=== PATIENT | female | born 1975 | race Caucasian/White ===

== ENCOUNTER 2016-11-15 19:42 | Emergency (ER) | payer OTHER ==
[2016-11-15 19:55] VITALS: BP 129/90; PULSE 99; TEMP 98; BMI 22.6
[2016-11-15] MEDS ORDERED: KETOROLAC TROMETHAMINE 30 MG/1 ML VIAL IVPUSH ONE (20:02)
[2016-11-15] MEDS ORDERED: SODIUM CHLORIDE 1,000 ML IV STA (20:02)
--- NOTE | 2016-11-15 20:06 | PDOC ---
[id number]: No Limitations - History of Present Illness Travel History: No Initial Comments: 11/15/16 20:18 The patient is a 41 year old female with a past medical history hysterectomy, sphincter body disorder, IBS, chronic gastritis, pancreatitis who presents to the emergency department for further evaluation of lower abdominal and back pain , and hematuria. The patient reports associated bilateral hand and foot edema, and dizziness. The patient states that she has been trying to treat her infection with Cipro with no alleviation of symptoms. She states that today she was driving and almost passed out. She denies any drug allergies. PCP: Dr. Marcel Suarez <Christian Gibson - Last Filed: 11/15/16 20:45> <Volodymyr Whitley - Last Filed: 11/16/16 06:58> - General Chief Complaint: Hematuria Stated Complaint: PAIN, HEMATURIA Time Seen by Provider: 11/15/16 19:58 Past History <Christian Gibson - Last Filed: 11/15/16 20:45> - Past Medical History Anemia: No Asthma: No Cancer: (NON CA TUMORS OF ESPHAGUS) Cardiac Disorders: No CVA: No COPD: No CHF: No Dementia: No Diabetes: No GI Disorders: Yes (SPHINCTER OF ODDI DISORDER, IBS, CHRONIC PANCREATITIS) Disorders: Yes (OVARIAN CYSTS, HEMATURIA) HTN: No Hypercholesterolemia: No Liver Disease: No Psychiatric Problems: Yes Seizures: No Thyroid Disease: No Other medical history: AUTOIMMUNE DISEASE, ORTHOSTATIC HYPOTENSION - Surgical History Abdominal Surgery: Yes (multiple recurrent polyps, status post recurrent colonoscopy and polypectom) Appendectomy: No Cardiac Surgery: No Cholecystectomy: Yes Lung Surgery: No Neurologic Surgery: No Orthopedic Surgery: Yes (RIGHT KNEE ARTHROSCOPY X 2) - Immunization History Immunization Up to Date: Yes - Psycho/Social/Smoking Cessation Hx Anxiety: Yes Suicidal Ideation: No Smoking Status: Yes Smoking History: Current every day smoker Years of Tobacco Use: 8 Have you smoked in the past 12 months: Yes Number of Cigarettes Smoked Daily: 20 If you are a former smoker, when did you quit?: 93 DAYS AGO Information on smoking cessation initiated: Yes 'Breaking Loose' booklet given: 11/15/16 Hx Alcohol Use: Yes Drug/Substance Use Hx: No Substance Use Type: Alcohol, Prescribed Hx Substance Use Treatment: No <Volodymyr Whitley - Last Filed: 11/16/16 06:58> - Past Medical History Allergies/Adverse Reactions: Allergies Allergy/AdvReac Type Severity Reaction Status Date / Time Latex, Natural Rubber Allergy Rash Verified 10/07/15 07:22 povidone-iodine Allergy Rash Verified 10/07/15 07:22 [From Betadine] soap [From Betadine] Allergy Rash Verified 10/07/15 07:22 NSAIDS (Non-Steroidal AdvReac "INTERACTS Verified 10/07/15 07:22 Anti-Inflamma WITH CYMBALTA" No Known Allergies Allergy Uncoded 12/03/11 20:57 Home Medications: Ambulatory Orders Morphine Sulfate [Morphine Sulfate Er] 15 mg PO BID PRN 05/07/16 Phenazopyridine HCl [Pyridium] 100 mg PO TID #10 tablet 11/15/16 Sulfamethoxazole/Trimethoprim [Bactrim Ds -] 1 tab PO BID #06 tablet 11/15/16 Review of Systems - Review of Systems Able to Perform ROS?: Yes ABD/GI: Yes: Symptoms Reported, See HPI, Other (Abdominal pain) : Yes: Symptoms Reported, See HPI, Hematuria Musculoskeletal: Yes: Symptoms Reported, See HPI, Back Pain, Other (b/l hand and foot edema) Neurological: Yes: Symptoms reported, See HPI, Dizziness <Christian Gibson - Last Filed: 11/15/16 20:45> *Physical Exam - Vital Signs Last Vital Signs Temp Pulse Resp BP Pulse Ox 98 F 99 H 18 129/90 100 11/15/16 19:53 11/15/16 19:53 11/15/16 19:53 11/15/16 19:53 11/15/16 19:53 <Christian Gibson - Last Filed: 11/15/16 20:45> - Vital Signs Last Vital Signs Temp Pulse Resp BP Pulse Ox 98 F 99 H 18 129/90 100 11/15/16 19:53 11/15/16 19:53 11/15/16 19:53 11/15/16 19:53 11/15/16 19:53 - Physical Exam General Appearance: Yes: Nourished, Appropriately Dressed. No: Apparent Distress HEENT: positive: Normal ENT Inspection Respiratory/Chest: positive: Lungs Clear, Normal Breath Sounds. negative: Chest Tender, Respiratory Distress Cardiovascular: positive: Regular Rhythm, Regular Rate Gastrointestinal/Abdominal: positive: Normal Bowel Sounds, Tender (DIFFUSELLY BUT MOSTLY LOWER ABD W/ VOL GUARDING) Musculoskeletal: positive: Normal Inspection Extremity: positive: Normal Capillary Refill Neurologic: positive: Fully Oriented, Alert, Normal Mood/Affect, Normal Response , Motor Strength 5/5 <Volodmyyr Whitley - Last Filed: 11/16/16 06:58> ED Treatment Course - LABORATORY CBC & Chemistry Diagram: 11/15/16 20:18 11/15/16 20:18 <Christian Gibson - Last Filed: 11/15/16 20:45> - LABORATORY CBC & Chemistry Diagram: 11/15/16 20:18 11/15/16 20:18 <Volodymyr Whitley - Last Filed: 11/16/16 06:58> Progress Note - Progress Note Progress Note: DYSURIA AND BACK PAIN LIKELY UTI CONVOLUTED HISTORY WILL CHECK CBC AND BMP AND REASSESS AFTER IVF AND PAIN CONTROL <Volodymyr Whitley - Last Filed: 11/16/16 06:58> *DC/Admit/Observation/Transfer - Attestations Scribe Attestion: 11/15/16 20:21 Documentation prepared by Christian Gibson, acting as medical tech for Volodymyr Whitley MD. <Christian Gibson - Last Filed: 11/15/16 20:45> <Volodymyr Whitley - Last Filed: 11/16/16 06:58> Diagnosis at time of Disposition: Recurrent urinary tract infection - Discharge Dispostion Disposition: HOME Condition at time of disposition: Stable - Prescriptions Prescriptions: Sulfamethoxazole/Trimethoprim [Bactrim Ds -] 1 tab PO BID #06 tablet Phenazopyridine HCl [Pyridium] 100 mg PO TID #10 tablet - Referrals Referrals: Marcel Rutledge MD [Primary Care Provider] -
[2016-11-15] MEDS ORDERED: KETOROLAC TROMETHAMINE 30 MG/1 ML VIAL ONE (20:07)
[2016-11-15 20:20] LABS: PH,URINE 5.5 (4.5-8); URINE BILIRUBIN Negative (NEGATIVE); URINE GLUCOSE (UA) Negative (NEGATIVE); URINE KETONE Negative (NEGATIVE); URINE NITRITE Negative (NEGATIVE); URINE UROBILINOGEN 0.2 E.U/dl (0.2-1.0)
[2016-11-15 20:22] LABS: URINE APPEARANCE CLOUDY; URINE BLOOD 2+ (NEGATIVE); URINE COLOR YELLOW; URINE LEUK ESTERASE 2+ (NEGATIVE); URINE PROTEIN 1+ (NEGATIVE)
[2016-11-15 20:29] LABS: BASOPHIL 0.9 % (0-2.0); EOSINOPHIL 2.1 % (0-4.5); MCH 31.4 pg (25.7-33.7); MCHC 34.5 g/dl (32.0-36.0); MEAN CELL VOLUME 91.1 fl (80-96); MEAN PLT VOLUME 8.4 fl (7.5-11.1); NEUTROPHILS 60.5 % (42.8-82.8); PLATELET COUNT 238 K/MM3 (134-434); WHITE BLOOD COUNT 10.7 K/mm3 (4.0-10.0)
[2016-11-15 20:31] LABS: URINE BACTERIA MODERATE /hpf (NEGATIVE); URINE RBC 0-2 /hpf (0-3); URINE WBC MANY (3-5)
[2016-11-15 20:42] LABS: CREATININE 0.7 mg/dl (0.6-1.3)
[2016-11-15] MEDS ORDERED: SULFAMETHOXAZOLE/TRIMETHOPRIM 800MG/160MG D.S. TABLET PO ONE (20:44)
[2016-11-15] MEDS ORDERED: PHENAZOPYRIDINE HCL 100 MG TABLET (FP) ONE (20:48)
[2016-11-15] MEDS ORDERED: SULFAMETHOXAZOLE/TRIMETHOPRIM 800MG/160MG D.S. TABLET ONE (20:48)
[2016-11-16] MEDS ORDERED: PHENAZOPYRIDINE HCL 100 MG TABLET (FP) PO SCH (09:00)
== END 2016-11-15 21:15 | disposition home or self-care (01) ==
LOC: SUPCPDRO 19:42 → FER 19:42
PROC: 3E0333Z Introduction of Anti-inflammatory into Peripheral Vein, Percutaneous Approach (ICD-10-PCS; principal; 2016-11-15)
PROC: 3E03329 Introduction of Other Anti-infective into Peripheral Vein, Percutaneous Approach (ICD-10-PCS; 2016-11-15)
DX: N39.0 Urinary tract infection, site not specified (principal); F17.210 Nicotine dependence, cigarettes, uncomplicated; K83.4 Spasm of sphincter of Oddi; F99 Mental disorder, not otherwise specified; I95.1 Orthostatic hypotension; K58.2 Mixed irritable bowel syndrome
CPT/HCPCS: 36415; 80048; 81003; 81015; 85025; 99282-25

== ENCOUNTER 2018-07-02 05:05 | Emergency (ER) | payer OTHER ==
--- NOTE | 2018-07-02 05:09 | PDOC ---
History of Present Illness - General Chief Complaint: Injury Stated Complaint: INJURY TO RIGHT RING FINGER Time Seen by Provider: 07/02/18 05:08 History Source: Patient Exam Limitations: No Limitations - History of Present Illness Initial Comments: 07/02/18 05:11 This is a 42-year-old female who comes in complaining of right ring finger pain post jamming her finger this morning. Patient otherwise denies any complaints. PAST MEDICAL HISTORY: no significant history PAST SURGICAL HISTORY: no significant history FAMILY HISTORY: no pertinant history SOCIAL HISTORY: Pt lives with family and is employed. MEDICATIONS: reviewed ALLERGIES: As per nursing notes ROS General: No fevers or chills, no weakness, no weight loss HEENT: No change in vision. No sore throat,. No ear pain CardioVascular: No chest pain or shortness of breath Respiratory:No cough, or wheezing. Gastrointestinal: no nausea, vomiting, diarrhea or constipation, No rectal bleeding Genitourinary: No dysuria, hematuria, or frequency Musculoskeletal: . Right ring finger pain Neurologic: No headache, vertigo, dizziness or loss of consciousness Psychiatric: nor depression Skin: No rashes or easy bruising Endocrine: no increased thirst or abnormal weight change Allergic: no skin or latex allergy All other systems reviewed and normal GENERAL: The patient is awake, alert, and fully oriented, in no acute distress. HEAD: Normal with no signs of trauma. EARS: Bilateral ears are normal with normal external canal. and tympanic membranes. EYES: Pupils equal, round and reactive to light, extraocular movements intact, sclera anicteric, conjunctiva clear. EXTREMITIES: Normal range of motion, no edema. Right hand/ring finger there is a deformity to the distal phalanx at the DIP joint. Neurovascular intact. NEUROLOGICAL: Normal speech, normal gait. grossly intact PSYCH: Normal mood, normal affect. SKIN: Warm, Dry, normal turgor, no rashes or lesions noted. 07/02/18 05:37 Assessment and plan: This is a 42-year-old female who comes in complaining of right ring finger pain. Patient had x-ray was negative for any acute pathology. Patient's finger put in a splint and she was discharged will follow up with an orthopedist. Past History - Past Medical History Allergies/Adverse Reactions: Allergies Allergy/AdvReac Type Severity Reaction Status Date / Time Latex, Natural Rubber Allergy Rash Verified 07/02/18 05:07 povidone-iodine Allergy Rash Verified 07/02/18 05:07 [From Betadine] soap [From Betadine] Allergy Rash Verified 07/02/18 05:07 Home Medications: Ambulatory Orders NK [No Known Home Medication] 07/02/18 Anemia: No Asthma: No Cancer: (NON CA TUMORS OF ESPHAGUS) Cardiac Disorders: No CVA: No COPD: No CHF: No Dementia: No Diabetes: No GI Disorders: Yes (SPHINCTER OF ODDI DISORDER, IBS, CHRONIC PANCREATITIS) Disorders: Yes (OVARIAN CYSTS, HEMATURIA) HTN: No Hypercholesterolemia: No Liver Disease: No Psychiatric Problems: Yes Seizures: No Thyroid Disease: No - Surgical History Abdominal Surgery: Yes (multiple recurrent polyps, status post recurrent colonoscopy and polypectom) Appendectomy: No Cardiac Surgery: No Cholecystectomy: Yes Lung Surgery: No Neurologic Surgery: No Orthopedic Surgery: Yes (RIGHT KNEE ARTHROSCOPY X 2) - Immunization History Immunization Up to Date: Yes - Suicide/Smoking/Psychosocial Hx Smoking Status: Yes Smoking History: Current every day smoker Years of Tobacco Use: 8 Have you smoked in the past 12 months: Yes Number of Cigarettes Smoked Daily: 20 If you are a former smoker, when did you quit?: 93 DAYS AGO 'Breaking Loose' booklet given: 11/15/16 Hx Alcohol Use: No Drug/Substance Use Hx: No Substance Use Type: Alcohol, Prescribed Hx Substance Use Treatment: No *DC/Admit/Observation/Transfer Diagnosis at time of Disposition: Sprain of right ring finger - Discharge Dispostion Disposition: HOME Condition at time of disposition: Stable - Referrals - Patient Instructions Additional Instructions: Tylenol or Motrin as needed for pain. Wear the splint until you see Dr. Askew. Call Dr. Askew's office today for an appointment. Return to the emergency department immediately with ANY new, persistent or worsening symptoms. Continue any medications as previously prescribed by your physician. You should follow up with your primary doctor as soon as possible regarding today's emergency department visit. . Please make sure your doctor reviews the results of your emergency evaluation. Thank you for coming to the Emergency Department today for your care. It was a pleasure to see you today. Please note that your evaluation is INCOMPLETE until you follow-up with your doctor. - Post Discharge Activity
[2018-07-02 05:19] VITALS: BP 115/79; PULSE 88; TEMP 97.5; BMI 25.2
[2018-07-02] MEDS ORDERED: IBUPROFEN 600 MG TABLET (FP) PO ONE ×2 (05:36)
== END 2018-07-02 05:40 | disposition home or self-care (01) ==
LOC: FER 05:05
PROC: 2W3JX1Z Immobilization of Right Finger using Splint (ICD-10-PCS; principal; 2018-07-02)
DX: S63.614A Unspecified sprain of right ring finger, initial encounter (principal); W22.8XXA Striking against or struck by other objects, initial encounter; Y93.9 Activity, unspecified; Y92.9 Unspecified place or not applicable; Z87.891 Personal history of nicotine dependence; F99 Mental disorder, not otherwise specified; K58.9 Irritable bowel syndrome, unspecified
CPT/HCPCS: 73140-TC-RT-FY; 99281-25

== ENCOUNTER 2020-09-23 16:43 | Emergency (ER) | payer OTHER ==
[2020-09-23 17:05] VITALS: BP 106/79; PULSE 104; TEMP 97.8; BMI 24.2
[2020-09-23] MEDS ORDERED: FAMOTIDINE 20 MG TABLET PO ONE (17:55)
[2020-09-23] MEDS ORDERED: IBUPROFEN 600 MG TABLET (FP) PO ONE (17:55)
[2020-09-23 17:59] LABS: HEMATOCRIT 43.1 % (32.4-45.2); HEMOGLOBIN 14.8 GM/dl (10.7-15.3); MCH 31.9 pg (25.7-33.7); MCHC 34.3 g/dl (32.0-36.0); MEAN CELL VOLUME 92.8 fl (80-96); PLATELET COUNT 404 K/MM3 (134-434); RBC 4.65 M/mm3 (3.60-5.2); RDW 12.5 % (11.6-15.6)
[2020-09-23 18:01] LABS: BILIRUBIN,TOTAL 1.1 mg/dl (0.2-1); CALCIUM 9.5 mg/dl (8.5-10); POTASSIUM 3.9 mmol/L (3.5-5.1); TOT PROT 7.7 g/dl (6.4-8.2)
[2020-09-23] MEDS ORDERED: SODIUM CHLORIDE 1,000 ML IV STA (18:16)
[2020-09-23 18:35] LABS: PLATELET ESTIMATE SLT INCREASE
[2020-09-23] MEDS ORDERED: FAMOTIDINE 20 MG/50 ML IVPB 20 MG/50 ML MG IVPB ONE (18:41)
[2020-09-23 20:15] LABS: HCG,QUALITATIVE URINE Negative
== END 2020-09-23 20:28 | disposition left against medical advice (07) ==
LOC: FER 16:43
PROC: 3E033NZ Introduction of Analgesics, Hypnotics, Sedatives into Peripheral Vein, Percutaneous Approach (ICD-10-PCS; principal; 2020-09-23)
PROC: 3E0337Z Introduction of Electrolytic and Water Balance Substance into Peripheral Vein, Percutaneous Approach (ICD-10-PCS; 2020-09-23)
DX: I47.1 Supraventricular tachycardia (principal); D72.829 Elevated white blood cell count, unspecified; R10.9 Unspecified abdominal pain
CPT/HCPCS: 36415; 71046-TC-FY; 80053; 81003; 81015; 82550; 83690; 84443; 84484; 84703; 85025; 87086; 93005; 99291; C9803; U0003